=== PATIENT | female | born 1990 | race Caucasian/White ===

== ENCOUNTER 2017-06-14 09:55 | Emergency (ER) | payer OTHER ==
--- NOTE | 2017-06-14 10:07 | CPEKG ---
Heart Rate: 98 RR Interval: 612 P-R Interval: 104 QRSD Interval: 88 QT Interval: 348 QTC Interval: 445 P Nova: 66 QRS Nova: 62 T Wave Nova: 31 EKG Severity - BORDERLINE ECG - EKG Impression: SINUS RHYTHM EKG Impression: SHORT MT INTERVAL, ACCELERATED AV CONDUCTION Electronically Signed By: Kyle Varela 14-Jun-2017 13:58:19
[2017-06-14] MEDS ORDERED: NS 1,000 ML IV ONE (10:23)
--- NOTE | 2017-06-14 10:23 | EDPHY ---
H & P Time Seen by Provider: 06/14/17 10:10 HPI/ROS: Chief complaint. Chest pain HPI. Patient 26-year-old female presents emergency department with left anterior chest discomfort that was present on awakening this morning. She awoke in a weird position in her bed. Pain was diffuse the left chest left upper back and left shoulder. She tried a foam roller without relief. Symptoms feel like there worsening. Her symptoms are worse with deep breathing , lying down, change in position but not with exertion. Pain is described as sharp left anterior chest with radiation to her left shoulder blade. No abdominal symptoms. No unusual leg pain or swelling. No recent travel. Not on control pills. She tells me that typically her muscular chest discomfort is on the right side. No shortness of breath. No recent fever or cough. ROS Constitutional. no fever/chills, no weakness Eyes. no problems with vision ENT. no sore throat, no nasal drainage Cardiovascular. Left anterior sharp chest pain Respiratory. no shortness of breath, no cough Abdominal. no abdominal pain, no nausea/vomiting, no diarrhea . no problems urinating MS. no calf pain/swelling, no neck/back pain, no joint pain Skin. no rash Lymph. no swollen glands Neuro. no headache, no dizziness, no difficulty walking or with speech Past Medical/Surgical History: Tonsillectomy Social History: Single, nonsmoker, no alcohol Smoking Status: Never smoked Physical Exam: General Appearance: Alert well-developed female mild distress vital signs are stable Eyes: Pupils equal and round no pallor or injection. ENT, Mouth: Mucous membranes are moist. Respiratory: There are no retractions, lungs are clear to auscultation. Cardiovascular: Regular rate and rhythm. Chest wall mildly tender to palpation Gastrointestinal: Abdomen is soft and nontender, no masses, bowel sounds normal. Neurological: Awake and alert, sensory and motor exams grossly normal. Skin: Warm and dry, no rashes. Musculoskeletal: Neck is supple nontender. Extremities symmetrical, full range of motion. Psychiatric: Patient is oriented X 3, there is no agitation. Constitutional: Initial Vital Signs Temperature (C) 36.8 C 06/14/17 09:57 Heart Rate 98 06/14/17 09:57 Respiratory Rate 20 06/14/17 09:57 Blood Pressure 128/84 H 06/14/17 09:57 O2 Sat (%) 99 06/14/17 09:57 O2 Delivery Mode Room Air Allergies/Adverse Reactions: Penicillins Allergy (Verified 06/14/17 09:56) pseudoephedrine [From Sudafed] Allergy (Verified 06/14/17 09:56) Home Medications: Medication Instructions Recorded Hydrocodone/APAP 5/325 [[place] 1 each PO Q4-6PRN PRN #7 tab 06/14/17 5/325 (*)] Medical Decision Making - Diagnostics EKG Interpretation: EKG interpreted by me shows normal sinus rhythm normal interval and axis. QRS is normal there is no significant ST elevation or depression. No arrhythmia. There does appear to be a slightly short AL interval at 104. The rate is 98 Imaging Results: Imaging Impressions Chest X-Ray 06/14/17 10:09 Impression: Normal. Procedures: IV normal saline, monitor Toradol IV ED Course/Re-evaluation: Re-evaluation at 11:40 a.m.. Patient is feeling much better after the Toradol. Her discomfort is last. The patient and I discussed imaging lab EKG findings. We discussed treatment plan including criteria for return importance of follow-up and further evaluation. She expresses understanding and agreement Differential Diagnosis: I think that this is muscular. The I considered pulmonary embolus, acute coronary syndrome, arrhythmia, pneumonia, pneumothorax. Her pain is worse with movement and deep breathing. No evidence for intrathoracic pathology - Data Points Laboratory Results: Laboratory Results 06/14/17 10:05 06/14/17 10:05 06/14/17 06/14/17 06/14/17 10:05 10:05 10:05 WBC RBC Hgb Hct MCV MCH MCHC RDW Plt Count MPV Neut % (Auto) Lymph % (Auto) [place] % (Auto) Eos % (Auto) Baso % (Auto) Nucleat RBC Rel Count Absolute Neuts (auto) Absolute Lymphs (auto) Absolute Monos (auto) Absolute Eos (auto) Absolute Basos (auto) Absolute Nucleated RBC Immature Gran % Immature Gran # D-Dimer 0.27 ug/mLFEU ug/mLFEU (0.00-0.50) Sodium 144 mEq/L mEq/L (135-145) Potassium 3.9 mEq/L mEq/L (3.5-5.2) Chloride 104 mEq/L mEq/L (97-110) Carbon Dioxide 29 mEq/l mEq/l (22-31) Anion Gap 11 mEq/L mEq/L (8-16) BUN 11 mg/dL mg/dL (7-23) Creatinine 0.7 mg/dL mg/dL (0.6-1.0) Estimated GFR > 60 Glucose 77 mg/dL mg/dL (70-100) Calcium 9.4 mg/dL mg/dL (8.5-10.4) Troponin I < 0.012 ng/mL ng/mL (0.000-0.034) Beta HCG, Qual NEGATIVE 06/14/17 10:05 WBC 9.58 10^3/uL H 10^3/uL (3.80-9.50) RBC 4.84 10^6/uL 10^6/uL (4.18-5.33) Hgb 15.5 g/dL g/dL (12.6-16.3) Hct 45.4 % % (38.0-47.0) MCV 93.8 fL fL (81.5-99.8) MCH 32.0 pg pg (27.9-34.1) MCHC 34.1 g/dL g/dL (32.4-36.7) RDW 12.2 % % (11.5-15.2) Plt Count 275 10^3/uL 10^3/uL (150-400) MPV 9.1 fL fL (8.7-11.7) Neut % (Auto) 70.6 % % (39.3-74.2) Lymph % (Auto) 19.4 % % (15.0-45.0) [place] % (Auto) 5.1 % % (4.5-13.0) Eos % (Auto) 4.0 % % (0.6-7.6) Baso % (Auto) 0.7 % % (0.3-1.7) Nucleat RBC Rel Count 0.0 % % (0.0-0.2) Absolute Neuts (auto) 6.76 10^3/uL H 10^3/uL (1.70-6.50) Absolute Lymphs (auto) 1.86 10^3/uL 10^3/uL (1.00-3.00) Absolute Monos (auto) 0.49 10^3/uL 10^3/uL (0.30-0.80) Absolute Eos (auto) 0.38 10^3/uL 10^3/uL (0.03-0.40) Absolute Basos (auto) 0.07 10^3/uL 10^3/uL (0.02-0.10) Absolute Nucleated RBC 0.00 10^3/uL 10^3/uL (0-0.01) Immature Gran % 0.2 % % (0.0-1.1) Immature Gran # 0.02 10^3/uL 10^3/uL (0.00-0.10) D-Dimer Sodium Potassium Chloride Carbon Dioxide Anion Gap BUN Creatinine Estimated GFR Glucose Calcium Troponin I Beta HCG, Qual Medications Given: Discontinued Medications Sodium Chloride (Ns) 1,000 mls @ 0 mls/hr IV EDNOW ONE; Wide Open PRN Reason: Protocol Stop: 06/14/17 10:24 Last Admin: 06/14/17 10:28 Dose: 1,000 mls Ketorolac Tromethamine (Toradol) 15 mg IVP EDNOW ONE Stop: 06/14/17 10:50 Last Admin: 06/14/17 10:51 Dose: 15 mg Departure - Departure Disposition: Home, Routine, Self-Care Clinical Impression: Chest wall pain Condition: Good Instructions: Chest Pain (ED) Additional Instructions: Lidocaine patch from the grocery store applied to your left chest where it is sore and can help with discomfort. Ibuprofen 600 mg every 6 hr for discomfort. Hydrocodone in addition if necessary for discomfort. Return for worsening chest discomfort, fever, trouble breathing. Recheck in 2 days for continuing symptoms Referrals: NONE *PRIMARY CARE P,. [Primary Care Provider] - As per Instructions Naseem Roberson MD [Medical Doctor] - 2-3 days, if not improved Prescriptions: Hydrocodone/APAP 5/325 [[place] 5/325 (*)] 1 each PO Q4-6PRN PRN #7 tab PRN Reason: Pain, Moderate
[2017-06-14 10:28] LABS: PLATELET COUNT 275 10^3/uL (150-400)
[2017-06-14] MEDS ORDERED: KETOROLAC 15 MG/1 ML SDV IVP ONE (10:49)
[2017-06-14 12:00] VITALS: BP 120/86
== END 2017-06-14 12:01 | disposition home or self-care (01) ==
DX: R07.89 Other chest pain (principal); E86.9 Volume depletion, unspecified
CPT/HCPCS: 96374; J1885